=== PATIENT | male | born 1975 | race Asian ===

== ENCOUNTER 2019-06-27 23:18 | Emergency (ER) | payer MEDICAID ==
[~2019-06-27] VITALS: Ht 172.7 cm; Wt 65.8 kg
--- NOTE | 2019-06-27 23:30 | NUR ---
ED Nurse Note: PT WALKED TO ED C/O SOB X2DAYS. PER PT HE HAS BEEN IN SELF QUARANTINE WITH MILD COUGH THAT GOT WORSE. PT STATES ONE EPISODE OF BLOODY STOOL TODAY. PT IS UNABLE TO SPEAK FULL SENTENCE WITHOUT BEING SOB. PT TEMP 97.2 AT TRIAGE. VSS. AAOX4, AMBULATORY, ERMD AT BEDSIDE. WILL CONTINUE TO MONITOR PATIENT.
--- NOTE | 2019-06-27 23:37 | Emergency Room Report ---
History of Present Illness General Chief Complaint: Upper Respiratory Illness Source: Patient Present Illness HPI Patient 43-year-old male who presents after increased difficulty with breathing. Reports having onset of symptoms 2 days ago. Associated chills. Patient is a former smoker. Denies any sore throat. Nonproductive cough. Decreased ability to breathe. Reports having no recent known sick contacts. Denies any vomiting or diarrhea. Denies any prior history of respiratory disease. Allergies: Coded Allergies: No Known Allergies (Unverified , 06/27/19) COVID-19 Screening Contact w/high risk pt: No Recent Travel to affected area: No Experienced COVID-19 symptoms?: Yes COVID-19 symptoms experienced: Shortness of Breath, Cough Patient History Past Medical History: see triage record Reviewed Nursing Documentation: PMH: Agreed; PSxH: Agreed Nursing Documentation-PMH Past Medical History: No Stated History Review of Systems All Other Systems: negative except mentioned in HPI Physical Exam Vital Signs Date Time Temp Pulse Resp B/P (MAP) Pulse Ox O2 Delivery O2 Flow Rate FiO2 06/27/19 23:29 97.0 121 18 143/93 (110) 96 Room Air Sp02 EP Interpretation: reviewed, normal General Appearance: normal inspection, well appearing, no apparent distress, alert, GCS 15 Head: atraumatic ENT: normal ENT inspection, hearing grossly normal, normal voice Neck: normal inspection, full range of motion, supple, no bony tend Respiratory: normal inspection, no respiratory distress, no retraction, wheezing Cardiovascular #1: regular rate, rhythm, no edema Gastrointestinal: normal inspection, normal bowel sounds, non tender, soft, no guarding, no hernia Genitourinary: no CVA tenderness Musculoskeletal: normal inspection, back normal, normal range of motion Neurologic: alert, motor strength/tone normal, corrosion control fitter III-XII nml as tested, oriented x3, responsive, speech normal, normal inspection Psychiatric: normal inspection, judgement/insight normal, mood/affect normal Medical Decision Making Diagnostic Impression: Primary Impression: Viral respiratory infection ER Course Presented for shortness of breath. Differential diagnosis include was not limited to pneumonia, bronchitis, influenza, covid 19 among others. Because of complexity of patient's case laboratory tests and imaging studies were ordered. Chest x-ray 1 view interpreted by me showed normal cardiac size without evident infiltrate. No effusions were noted. Patient was given breathing treatment as well as IV steroids. He was also given IV fluids and magnesium. He was noted to have market improvement in his difficulty with breathing.Patient was noted to have initial wheezing. Laboratory testing showed some evidence of eosinophilia as well as a normal white blood count. Hemoglobin was adequate. Troponin was negative. Patient was advised of laboratory findings. He said he felt much better after breathing treatment. Patient appears to be stable for outpatient management. He was advised to return if he began having worsening shortness of breath or any other concerns. Coronavirus testing will not be performed at this time as per current department of public health recommendations. However he was advised to self quarantine due to current prevalence and likelihood of false negative at this time. Labs Test 06/27/19 23:59 White Blood Count 10.1 K/UL (4.8-10.8) Red Blood Count 5.27 M/UL (4.70-6.10) Hemoglobin 16.5 G/DL (14.2-18.0) Hematocrit 46.5 % (42.0-52.0) Mean Corpuscular Volume 88 FL (80-99) Mean Corpuscular Hemoglobin 31.4 PG (27.0-31.0) Mean Corpuscular Hemoglobin Concent 35.6 G/DL (32.0-36.0) Red Cell Distribution Width 10.8 % (11.6-14.8) Platelet Count 502 K/UL (150-450) Mean Platelet Volume 5.2 FL (6.5-10.1) Neutrophils (%) (Auto) 67.9 % (45.0-75.0) Lymphocytes (%) (Auto) 17.3 % (20.0-45.0) Monocytes (%) (Auto) 7.5 % (1.0-10.0) Eosinophils (%) (Auto) 5.8 % (0.0-3.0) Basophils (%) (Auto) 1.5 % (0.0-2.0) Sodium Level 140 MMOL/L (136-145) Potassium Level 4.0 MMOL/L (3.5-5.1) Chloride Level 100 MMOL/L (98-107) Carbon Dioxide Level 26 MMOL/L (21-32) Anion Gap 14 mmol/L (5-15) Blood Urea Nitrogen 10 mg/dL (7-18) Creatinine 0.8 MG/DL (0.55-1.30) Estimat Glomerular Filtration Rate > 60 mL/min (>60) Glucose Level 120 MG/DL (74-106) Calcium Level 9.4 MG/DL (8.5-10.1) Total Bilirubin 1.0 MG/DL (0.2-1.0) Aspartate Amino Transf (AST/SGOT) 15 U/L (15-37) Alanine Aminotransferase (ALT/SGPT) 35 U/L (12-78) Alkaline Phosphatase 66 U/L (46-116) Troponin I 0.000 ng/mL (0.000-0.056) Total Protein 8.3 G/DL (6.4-8.2) Albumin 4.6 G/DL (3.4-5.0) Globulin 3.7 g/dL Albumin/Globulin Ratio 1.2 (1.0-2.7) EKG Diagnostic Results Rate: tachycardiac - 114 Rhythm: NSR ST Segments: no acute changes Rhythm Strip Diag. Results EP Interpretation: yes Rhythm: NSR, no PVC's, no ectopy Last Vital Signs Date Time Temp Pulse Resp B/P (MAP) Pulse Ox O2 Delivery O2 Flow Rate FiO2 06/27/19 23:29 97.0 121 18 143/93 (110) 96 Room Air Status: improved Disposition: HOME, SELF-CARE Condition: Stable Scripts Azithromycin* (ZITHROMAX*) 250 Mg Tablet 250 MG ORAL DAILY, #6 TAB 0 Refills Take two tables once daily for 1 day, then one tablet once daily for 4 days. Prov: Etienne Garcia MD 06/28/19 Albuterol Sulfate* (ALBUTEROL SULFATE MDI*) 8.5 Gm Hfa.aer.ad 2 PUFF INH Q6H, #1 EA 0 Refills Prov: Etienne Garcia MD 06/28/19 Prednisone* (PREDNISONE*) 20 Mg Tablet 40 MG ORAL DAILY, #10 TAB Prov: Etienne Garcia MD 06/28/19 Etienne Garcia MD Jun 27, 2019 23:36
[2019-06-27 23:45] VITALS: BP 143/93
[2019-06-27] MEDS ORDERED: Solu-MEDROL 125mg Inj IVP ONE (23:45)
[2019-06-27] MEDS ORDERED: Albuterol ud Inhalation HHN ONE (23:45)
[2019-06-27] MEDS ORDERED: Ipratropium 0.02% Inh Soln 2.5ml UD HHN ONE (23:45)
--- NOTE | 2019-06-27 23:45 | NUR ---
ED Nurse Note: blood drawn and sent to lab
--- NOTE | 2019-06-27 23:50 | NUR ---
ED Nurse Note: xr at bedside
--- NOTE | 2019-06-27 23:55 | NUR ---
ED Nurse Note: rt at bedside with breathing tx
[2019-06-28 00:16] LABS: BASOPHILS % (AUTO) 1.5 % (0.0-2.0); EOSINOPHILS % (AUTO) 5.8 % (0.0-3.0); HEMATOCRIT 46.5 % (42.0-52.0); HEMOGLOBIN 16.5 G/DL (14.2-18.0); LYMPHOCYTES % (AUTO) 17.3 % (20.0-45.0); MEAN CORPUSCULAR VOLUME 88 FL (80-99); MONOCYTES % (AUTO) 7.5 % (1.0-10.0); NEUTROPHILS % (AUTO) 67.9 % (45.0-75.0); PLATELET COUNT 502 K/UL (150-450); RED BLOOD COUNT 5.27 M/UL (4.70-6.10); RED CELL DISTRIBUTION WIDTH 10.8 % (11.6-14.8); WHITE BLOOD COUNT 10.1 K/UL (4.8-10.8)
[2019-06-28 00:29] LABS: ANION GAP 14 mmol/L (5-15); BLOOD UREA NITROGEN 10 mg/dL (7-18); CALCIUM 9.4 MG/DL (8.5-10.1); CARBON DIOXIDE 26 MMOL/L (21-32); CHLORIDE 100 MMOL/L (98-107); CREATININE 0.8 MG/DL (0.55-1.30); SODIUM 140 MMOL/L (136-145)
[2019-06-28 00:33] LABS: ALANINE AMINOTRANSFERASE 35 U/L (12-78); ALBUMIN 4.6 G/DL (3.4-5.0); ALBUMIN/GLOBULIN RATIO 1.2 (1.0-2.7); ALKALINE PHOSPHATASE 66 U/L (46-116); ASPARTATE AMINO TRANSFERASE 15 U/L (15-37)
[2019-06-28] MEDS ORDERED: PREDNISONE20 MG ORAL (00:47)
[2019-06-28] MEDS ORDERED: ALBUTEROL SULF8.5 GM INH (00:47)
[2019-06-28] MEDS ORDERED: ZITHROMAX250 MG ORAL (00:47)
[2019-06-28 01:35] VITALS: BP 122/72
[2019-06-28 01:40] VITALS: BP 122/72
--- NOTE | 2019-06-28 01:40 | NUR ---
ER DISCHARGE NOTE: Patient is cleared to be discharged per ERMD, pt is aox4, on room air, with stable vital signs. pt was given dc and prescription instructions, pt was able to verbalize understanding, pt id band and iv site removed without complications. pt is able to ambulate with steady gait. pt took all belongings.
--- NOTE | 2019-06-28 09:52 | Diagnostic Imaging Report ---
Indication: Dyspnea Comparison: None A single view chest radiograph was obtained. Findings: Cardiomediastinal appearance is within normal limits for age. The lungs are clear. Pulmonary vascularity is appropriate. The diaphragmatic contour is smooth and costophrenic angles are sharp. No pleural effusions are identified. The bones are unremarkable. Impression: No acute findings
== END 2019-06-28 01:40 | disposition home or self-care (01) ==
LOC: EMR 23:43
DX: B34.9 Viral infection, unspecified (principal); J98.8 Other specified respiratory disorders; R06.02 Shortness of breath
CPT/HCPCS: 36415; 71045; 80053; 84484; 85025; 86710; 93005; 96365; 96375; J2930; J7030; Z7502; 99284

== ENCOUNTER 2020-04-14 02:13 | Emergency (ER) | payer MEDICAID ==
[~2020-04-14] VITALS: Ht 175.3 cm; Wt 68.0 kg
[~2020-04-14 02:13] MED LIST: ALBUTEROL SULF8.5 GM INH; PREDNISONE20 MG ORAL; ZITHROMAX250 MG ORAL
--- NOTE | 2020-04-14 02:33 | Emergency Room Report ---
History of Present Illness General Chief Complaint: Dyspnea/Respdistress Source: Patient Present Illness HPI Disclaimer: Please note that this report is being documented using [employer] technology. This can lead to erroneous entry secondary to incorrect interpretation by the dictating instrument. HPI: 44-year-old male presents for evaluation of shortness of breath. He reports tightness and wheezing over the past week. Getting worse with nonproductive cough. Denies fever chills. Reports sore throat. Patient had coronavirus in June 2019 for which he was given an inhaler. He states he has been using the inhaler over the past week which improves his symptoms but they typically return. Seem to be worse at night. He denies chest pain. Denies nausea or vomiting or diarrhea. No known sick contacts. Did not receive a flu shot this year. PMH: Denied PSH: Denied Allergies: Denied Social Hx: Former smoker Allergies: Coded Allergies: No Known Allergies (Unverified , 06/27/19) COVID-19 Screening Contact w/high risk pt: No Recent Travel to affected area: No Experienced COVID-19 symptoms?: Yes COVID-19 symptoms experienced: Shortness of Breath, Cough COVID-19 Testing performed RETAIL GROCER: Yes - june 2019 COVID-19 Screening: Negative COVID-19 COVID-19 Testing Source: clinic Nursing Documentation-PMH Past Medical History: No History, Except For Review of Systems All Other Systems: negative except mentioned in HPI Physical Exam Vital Signs Date Time Temp Pulse Resp B/P (MAP) Pulse Ox O2 Delivery O2 Flow Rate FiO2 04/14/20 02:17 98.2 110 18 178/132 (147) 88 Room Air General: Awake and alert, appears anxious and slightly uncomfortable HEENT: NC/AT. EOMI. Cardiovascular: Tachycardic. S1 and S2 normal. No murmur appreciated Resp: Normal work of breathing. Inspiratory and aspiratory wheezes bilaterally. Hypoxic in triage improved in room Abdomen: Abdomen is soft, nondistended. Nontender Skin: Intact. No abrasions, laceration or rash over the exposed skin MSK: Normal tone and bulk. Moving all extremities. No obvious deformity. Neuro: Awake and alert. Mentating appropriately. Medical Decision Making Diagnostic Impression: Primary Impression: Dyspnea ER Course 44-year-old male presents for evaluation of shortness of breath. Differential includes not limited to bronchitis, viral syndrome, COVID-19 infection, influenza, pneumonia, asthma exacerbation, COPD exacerbation among others. Triaged as saturating 88% on room air however once he was placed in the room he was 100% on room air speaking full sentences no respiratory distress. Patient refused ABG stating it was too painful. I believe the initial pulse ox reading was in error. He was given Decadron and states he felt better almost immediately. COVID-19 and influenza negative. Chest x-ray unremarkable; no infiltrate, no effusion, no pneumothorax. Patient received albuterol breathing treatments and wheezing resolved. May have undiagnosed asthma possibly triggered by mild viral URI. Instructed to follow-up with his PMD for pulmonary function testing asthma testing and reevaluation. Will give a short course of prednisone and refill albuterol inhaler. Stable for outpatient follow-up. Instructed to return new or worsening symptoms. Laboratory Tests Test 04/14/20 02:30 White Blood Count 10.0 K/UL (4.8-10.8) Red Blood Count 4.78 M/UL (4.70-6.10) Hemoglobin 15.2 G/DL (14.2-18.0) Hematocrit 44.1 % (42.0-52.0) Mean Corpuscular Volume 92 FL (80-99) Mean Corpuscular Hemoglobin 31.7 PG (27.0-31.0) H Mean Corpuscular Hemoglobin Concent 34.3 G/DL (32.0-36.0) Red Cell Distribution Width 13.6 % (11.6-14.8) Platelet Count 427 K/UL (150-450) Mean Platelet Volume 5.6 FL (6.5-10.1) L Neutrophils (%) (Auto) 50.0 % (45.0-75.0) Lymphocytes (%) (Auto) 25.2 % (20.0-45.0) Monocytes (%) (Auto) 8.5 % (1.0-10.0) Eosinophils (%) (Auto) 14.2 % (0.0-3.0) H Basophils (%) (Auto) 2.2 % (0.0-2.0) H Sodium Level 139 MMOL/L (136-145) Potassium Level 3.9 MMOL/L (3.5-5.1) Chloride Level 104 MMOL/L (98-107) Carbon Dioxide Level 29 MMOL/L (21-32) Anion Gap 6 mmol/L (5-15) Blood Urea Nitrogen 10 mg/dL (7-18) Creatinine 1.2 MG/DL (0.55-1.30) Estimated Glomerular Filtration Rate > 60 mL/min (>60) Glucose Level 133 MG/DL (74-106) H Calcium Level 9.5 MG/DL (8.5-10.1) Total Bilirubin 0.5 MG/DL (0.2-1.0) Aspartate Amino Transferase (AST) 22 U/L (15-37) Alanine Aminotransferase (ALT) 21 U/L (12-78) Alkaline Phosphatase 54 U/L (46-116) Troponin I 0.001 ng/mL (0.000-0.056) Total Protein 7.5 G/DL (6.4-8.2) Albumin 4.1 G/DL (3.4-5.0) Globulin 3.4 g/dL Albumin/Globulin Ratio 1.2 (1.0-2.7) Microbiology Date/Time Source Procedure Growth Status 04/14/20 02:30 Nasal Nares - Final Complete 04/14/20 02:30 Nasal Nares - Final Complete 04/14/20 02:30 Nasopharynx SARS-CoV-2 RdRp Gene Assay - Final Complete EKG Diagnostic Results Troponin ordered: Yes When was troponin ordered?: Apr 14, 2020 EKG Time: :27 Rate: normal Rhythm: NSR ST Segments: no acute changes Other Impression Sinus rhythm, normal axis, normal intervals, no ST segment changes Rhythm Strip Diag. Results Rhythm Strip Time: :27 EP Interpretation: yes Rate: 90s Rhythm: NSR, no PVC's, no ectopy Chest X-Ray Diagnostic Results Chest X-Ray Diagnostic Results : Chest X-Ray Ordered: Yes # of Views/Limited/Complete: 1 View Indication: Shortness of Breath EP Interpretation: Yes Interpretation: no consolidation, no effusion, no pneumothorax, no acute cardiopulmonary disease Impression: No acute disease Electronically Signed by: Electronically signed by Dr. Miguel A Moura MD Last Vital Signs Date Time Temp Pulse Resp B/P (MAP) Pulse Ox O2 Delivery O2 Flow Rate FiO2 04/14/20 02:17 98.2 110 18 178/132 (147) 88 Room Air Disposition: HOME, SELF-CARE Condition: Improved Scripts Albuterol Sulfate (VENTOLIN HFA) 18 Gm Hfa.aer.ad 1 PUFF INH EVERY 6 HOURS, #18 GM 0 Refills Prov: Miguel A Moura MD 04/14/20 Prednisone* (PREDNISONE*) 20 Mg Tablet 40 MG ORAL DAILY, #10 TAB Prov: Miguel A Moura MD 04/14/20 Referrals: VINITA DAVID,REFERRING (PCP) Miguel A Moura MD Apr 14, 2020 02:33
--- NOTE | 2020-04-14 02:40 | NUR ---
ED Nurse Note: Pt walked into the ed due to SOB x 1week. Pt stated; he was covid 19 postive june 2019. pt stated; he took inhaler at home and it helped him. pt is on monitor ; his vitals are stable. He is room air and satting 100%. Iv established;blood sent to the lab. Covid and influenza swab sent to the lab.
[2020-04-14 02:43] VITALS: BP 126/78
[2020-04-14] MEDS ORDERED: dexAMETHasone 10mg/ml Inj IV ONE (02:45)
[2020-04-14 02:46] LABS: BASOPHILS % (AUTO) 2.2 % (0.0-2.0); EOSINOPHILS % (AUTO) 14.2 % (0.0-3.0); HEMATOCRIT 44.1 % (42.0-52.0); HEMOGLOBIN 15.2 G/DL (14.2-18.0); LYMPHOCYTES % (AUTO) 25.2 % (20.0-45.0); MEAN CORPUSCULAR VOLUME 92 FL (80-99); MONOCYTES % (AUTO) 8.5 % (1.0-10.0); PLATELET COUNT 427 K/UL (150-450); RED BLOOD COUNT 4.78 M/UL (4.70-6.10); RED CELL DISTRIBUTION WIDTH 13.6 % (11.6-14.8)
[2020-04-14] MEDS: Albuterol/Ipratropium 3ml neb HHN SCH ×3 (02:48→03:12)
[2020-04-14 02:59] LABS: ANION GAP 6 mmol/L (5-15); BLOOD UREA NITROGEN 10 mg/dL (7-18); CALCIUM 9.5 MG/DL (8.5-10.1); CARBON DIOXIDE 29 MMOL/L (21-32); CHLORIDE 104 MMOL/L (98-107); CREATININE 1.2 MG/DL (0.55-1.30); POTASSIUM 3.9 MMOL/L (3.5-5.1); SODIUM 139 MMOL/L (136-145)
[2020-04-14 03:03] LABS: ALANINE AMINOTRANSFERASE 21 U/L (12-78); ALBUMIN 4.1 G/DL (3.4-5.0); ALBUMIN/GLOBULIN RATIO 1.2 (1.0-2.7); ALKALINE PHOSPHATASE 54 U/L (46-116); ASPARTATE AMINO TRANSFERASE 22 U/L (15-37); BILIRUBIN,TOTAL 0.5 MG/DL (0.2-1.0)
[2020-04-14] MEDS ORDERED: VENTOLIN HFA18 GM INH (03:10)
[2020-04-14] MEDS ORDERED: PREDNISONE20 MG ORAL (03:10)
--- NOTE | 2020-04-14 03:10 | NUR ---
RESPIRATORY NOTE: Called to ED around 0220 to draw ABG for this pt. Attempted to take pt's ABG, but pt isn't tolerating the pain from the needle & asked to stop & give him a moment to think about if he'll let me try again later when he's more calm. Tried to see if pt will let me draw ABG at 0300, but pt now refused to do it & states he already feels better. MD Zeny aware of ABG redraw refusal. Pt currently getting breathing txs at this time, no distress noted. Will continue to monitor.
[2020-04-14 03:43] VITALS: BP 142/69
--- NOTE | 2020-04-14 03:56 | Diagnostic Imaging Report ---
EXAM: XR Chest, 1 View CLINICAL HISTORY: SOB TECHNIQUE: Frontal view of the chest. COMPARISON: 06/27/2019 FINDINGS: Lungs: Unremarkable. No consolidation. Pleural space: Unremarkable. No pneumothorax. Heart: Unremarkable. No cardiomegaly. Mediastinum: Unremarkable. Bones/joints: Unremarkable. IMPRESSION: Normal chest x-ray.
--- NOTE | 2020-04-14 10:44 | Cardiology Report ---
APPROVED REPORT EKG Measurement Heart [id number] <Conclusion> Normal sinus rhythm Normal ECG
== END 2020-04-14 03:43 | disposition home or self-care (01) ==
LOC: EMR 02:29
DX: R06.00 Dyspnea, unspecified (principal); R05 Cough; R06.2 Wheezing; J02.9 Acute pharyngitis, unspecified; Z86.16 Personal history of COVID-19
CPT/HCPCS: 36415; 71045; 80053; 84484; 85025; 86710; 93005; 94640; 96374; 99284; J7620; U0002